=== PATIENT | male | born 1990 | race Caucasian/White ===

== ENCOUNTER 2017-07-20 21:41 | Emergency (ER) | payer OTHER ==
[~2017-07-20] VITALS: Ht 177.8 cm; Wt 80.0 kg
[~2017-07-20 21:41] MED LIST: KEPP1000 PO
[2017-07-20 21:47] VITALS: BP 145/73; PULSE 105; RESP 16; TEMP 98.8; O2SAT 97
[2017-07-20] MEDS ORDERED: LORazepam 2 MG/ML VIAL IV ONE (22:00)
[2017-07-20 22:19] VITALS: BP 121/63; PULSE 74; RESP 16; O2SAT 99
[2017-07-20 22:30] LABS: BASOPHIL # 0.1 TH/MM3 (0-0.2); BASOPHIL % 0.5 % (0.0-2.0); EOSINOPHIL # 0.4 TH/MM3 (0-0.4); EOSINOPHIL % 3.5 % (0.0-4.0); HEMO FLAGS DIFF FINAL; LYMPH % 37.8 % (9.0-44.0); LYMPHOCYTE # 4.1 TH/MM3 (1.0-4.8); MEAN CELL VOLUME 89.9 FL (80.0-100.0); MEAN CORPUSCULAR HEMOGLOBIN 30.4 PG (27.0-34.0); MEAN CORPUSCULAR HGB CONC 33.8 % (32.0-36.0); MONO % 11.7 % (0.0-8.0); NEUT % 46.5 % (16.0-70.0); PLATELET COUNT 222 TH/MM3 (150-450); RED BLOOD COUNT 4.67 MIL/MM3 (4.50-5.90); WHITE BLOOD COUNT 10.8 TH/MM3 (4.0-11.0)
[2017-07-20] MEDS ORDERED: LAMO150 PO (22:44)
[2017-07-20] MEDS ORDERED: KEPP10002 PO (22:44)
[2017-07-20 22:50] LABS: ANION GAP 6 MEQ/L (5-15); AST (GOT) 21 U/L (15-37); BICARBONATE 27.8 MEQ/L (21.0-32.0); BLOOD UREA NITROGEN 15 MG/DL (7-18); CHLORIDE 105 MEQ/L (98-107); GLOMERULAR FILTRATION RATE 71 ML/MIN (>89); POTASSIUM 3.4 MEQ/L (3.5-5.1); SODIUM (NA) 139 MEQ/L (136-145)
[2017-07-20 22:52] LABS: ALT (GPT) 25 U/L (12-78)
[2017-07-20 22:54] LABS: ALKALINE PHOSPHATASE 81 U/L (45-117); TOTAL BILIRUBIN ADULT 0.2 MG/DL (0.2-1.0)
[2017-07-20 23:32] VITALS: BP 133/82; PULSE 94; RESP 16; O2SAT 99
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
== END 2017-07-20 23:52 | disposition home or self-care (01) ==
LOC: NEPE 21:41
DX: G40.909 Epilepsy, unspecified, not intractable, without status epilepticus (principal); Z79.899 Other long term (current) drug therapy
CPT/HCPCS: 80053; 83735; 84100; 85025; 96374; 99284; J2060